=== PATIENT | female | born 1965 | race Caucasian/White ===

== ENCOUNTER 2020-06-14 22:09 | Inpatient (IN) ==
[2020-06-14] MEDS ORDERED: Ondansetron 4 MG/2 ML VIAL IVP ONE (22:43)
[2020-06-14] MEDS ORDERED: Isovue-370 500 ML BOTTLE IVP ONE (22:43)
[2020-06-14] MEDS ORDERED: *HR* FentaNYL (PF) 100 MCG/2 ML VIAL IVP ONE (22:43)
[2020-06-14 23:13] LABS: Basophils % 0.3 %; Eosinophils # 0.2 K/mcL (0.0-0.6); Eosinophils % 1.5 %; Hematocrit 40.1 % (35.3-44.9); Immature Granulocytes % 0.2 % (0-4); Lymphocytes # 2.1 K/mcL (0.6-4.6); Lymphocytes % 16.3 %; Mean Corpuscular HGB Conc 32.4 g/dL (31.6-35.5); Mean Corpuscular Hemoglobin 28.7 pg (28.0-33.3); Mean Corpuscular Volume 88.5 fL (83.0-100.0); Mean Platelet Volume 9.2 fL (9.4-12.4); Monocytes # 0.7 K/mcL (0.0-1.3); Monocytes % 5.6 %; Neutrophils # 9.9 K/mcL (1.6-8.9); Platelet Count 411 K/mcL (140-400); Red Blood Count 4.53 M/mcL (3.82-4.97); Red Cell Distribution Width 12.6 % (11.5-14.5); Segmented Neutrophils % 76.1 %
[2020-06-14 23:29] LABS: Bilirubin,Urine Negative (Negative); Blood,Urine Negative (Negative); Clarity,Urine Clear (Clear); Color,Urine Yellow (Yellow); Glucose,Urine (UA) Normal (Normal); Ketones,Urine Negative (Negative); Leukocyte Esterase,Urine Negative (Negative); Mucus,Urine Few per lpf (None-Few); Nitrite,Urine Negative (Negative); Protein,Urine 30 mg/dL (Neg-Trace); RBC,Urine 0-3 per hpf (0-3); Specific Gravity,Urine > 1.030 (1.010-1.025); Squamous Epithelial Cell,Urine Few per hpf (None-Few); WBC,Urine 0-3 per hpf (0-3)
[2020-06-14] MEDS ORDERED: Morphine Sulfate 2 MG/ML SYRINGE IVP ONE (23:31)
[2020-06-14 23:36] LABS: Alanine Aminotransferase 37 Units/L (7-52); Albumin 4.2 g/dL (3.5-5.7); Albumin/Globulin Ratio 1.2 (1.1-2.2); Alkaline Phosphatase 98 Units/L (34-104); Aspartate Amino Transferase 22 Units/L (13-39); BUN/Creatinine Ratio 17 (6-26); Bilirubin,Direct 0.1 mg/dL (0.0-0.2); Bilirubin,Indirect 0.2 mg/dL (0.0-1.0); Bilirubin,Total 0.3 mg/dL (0.3-1.0); Blood Urea Nitrogen 12 mg/dL (6-20); Calcium 9.3 mg/dL (8.6-10.3); Carbon Dioxide 26 mEq/L (23-29); Chloride 100 mEq/L (98-107); Globulin 3.4 g/dL (2.4-3.5); Glucose 103 mg/dL (70-105); Lipase 61 Units/L (11-82); Osmolality,Calculated 280 (280-300); Potassium 3.8 mEq/L (3.5-5.1); Sodium 135 mEq/L (136-145); Total Protein 7.6 g/dL (6.4-8.9); eGFR For African Americans > 60 (> 60); eGFR For Non-African Americans > 60 (> 60)
[2020-06-14] MEDS ORDERED: GI Cocktail 40 ML EACH PO ONE (23:59)
[2020-06-15] MEDS ORDERED: Tetracaine/Benzocaine/Butamben 1 SPRAY AEROSOL MM ONE (01:10)
[2020-06-15] MEDS ORDERED: Tetracaine/Benzocaine/Butamben 1 SPRAY AEROSOL ONE (01:12)
[2020-06-15] MEDS ORDERED: Ondansetron 4 MG/2 ML VIAL IVP PRN (02:37)
[2020-06-15] MEDS ORDERED: Naloxone 0.4 MG/ML INJ IVP PRN (02:37)
[2020-06-15] MEDS: Acetaminophen 325 MG TABLET PO PRN ×3 (03:10→18:39)
[2020-06-15] MEDS: Ringers Solution, Lactated 1,000 ML IVC SCH ×3 (03:11→22:13)
[2020-06-15] MEDS ORDERED: Pantoprazole 40 MG VIAL IVP ONE ×2 (03:27→04:15)
[2020-06-15] MEDS ORDERED: Acetaminophen IV 1,000 MG/100 ML BAG IVPB ONE ×2 (03:29→21:10)
[2020-06-15] MEDS ORDERED: Pantoprazole 40 MG in 0.9 % Sodium Chloride Mini Bag 100 ML IVC SCH (03:45)
[2020-06-15 04:27] LABS: Basophils % 0.2 %; Eosinophils # 0.1 K/mcL (0.0-0.6); Eosinophils % 1.3 %; Hemoglobin 12.8 g/dL (11.5-15.4); Immature Granulocytes % 0.1 % (0-4); Lymphocytes # 1.7 K/mcL (0.6-4.6); Lymphocytes % 18.6 %; Mean Corpuscular Hemoglobin 28.8 pg (28.0-33.3); Mean Corpuscular Volume 90.1 fL (83.0-100.0); Mean Platelet Volume 9.4 fL (9.4-12.4); Monocytes # 0.4 K/mcL (0.0-1.3); Monocytes % 4.5 %; Neutrophils # 6.8 K/mcL (1.6-8.9); Platelet Count 396 K/mcL (140-400); Red Blood Count 4.44 M/mcL (3.82-4.97); Red Cell Distribution Width 12.6 % (11.5-14.5); Segmented Neutrophils % 75.3 %; White Blood Count 9.1 K/mcL (4.3-11.1)
[2020-06-15 04:43] LABS: BUN/Creatinine Ratio 14 (6-26); Blood Urea Nitrogen 11 mg/dL (6-20); Calcium 9.3 mg/dL (8.6-10.3); Carbon Dioxide 28 mEq/L (23-29); Chloride 101 mEq/L (98-107); Glucose 100 mg/dL (70-105); Magnesium 2.1 mg/dL (1.6-2.6); Osmolality,Calculated 281 (280-300); Potassium 4.2 mEq/L (3.5-5.1); Sodium 136 mEq/L (136-145); eGFR For African Americans > 60 (> 60); eGFR For Non-African Americans > 60 (> 60)
[2020-06-15] MEDS: Nicotine 21 MG PATCH.TD24 TD SCH (07:48)
[2020-06-15] MEDS ORDERED: D5% in Water 1,000 ML IVC PRN (13:46)
[2020-06-15] MEDS ORDERED: *HR* Dextrose 50 % in Water (Vial) 50 ML VIAL IVP PRN (13:46)
[2020-06-15] MEDS ORDERED: Dextrose Gel 15 GM/37.5 ML TUBE PO PRN ×2 (13:46)
[2020-06-16 01:34] LABS: Hematocrit 37.6 % (35.3-44.9); Hemoglobin 11.7 g/dL (11.5-15.4); Mean Corpuscular HGB Conc 31.1 g/dL (31.6-35.5); Mean Corpuscular Hemoglobin 27.6 pg (28.0-33.3); Mean Corpuscular Volume 88.7 fL (83.0-100.0); Mean Platelet Volume 9.4 fL (9.4-12.4); Platelet Count 360 K/mcL (140-400); Red Blood Count 4.24 M/mcL (3.82-4.97); Red Cell Distribution Width 12.7 % (11.5-14.5); White Blood Count 7.8 K/mcL (4.3-11.1)
[2020-06-16 01:58] LABS: BUN/Creatinine Ratio 29 (6-26); Blood Urea Nitrogen 18 mg/dL (6-20); Calcium 8.7 mg/dL (8.6-10.3); Carbon Dioxide 26 mEq/L (23-29); Chloride 103 mEq/L (98-107); Glucose 79 mg/dL (70-105); Osmolality,Calculated 285 (280-300); Phosphorous 3.3 mg/dL (2.7-4.5); Potassium 3.9 mEq/L (3.5-5.1); Sodium 137 mEq/L (136-145); eGFR For African Americans > 60 (> 60); eGFR For Non-African Americans > 60 (> 60)
[2020-06-16] MEDS ORDERED: Acetaminophen IV 1,000 MG/100 ML BAG IVPB SCH (06:00)
[2020-06-16] MEDS: Nicotine 21 MG PATCH.TD24 TD SCH (08:06)
[2020-06-16] MEDS: Ringers Solution, Lactated 1,000 ML IVC SCH ×2 (12:32→20:36)
[2020-06-16] MEDS: Acetaminophen 325 MG TABLET PO PRN (14:20)
[2020-06-16 16:40] LABS: Adenovirus Not Detected (Not Detect); Bordetella Pertussis Not Detected (Not Detect); Chlamydophila pneumoniae Not Detected (Not Detect); Coronavirus 229E Not Detected (Not Detect); Coronavirus HKU1 Not Detected (Not Detect); Coronavirus NL63 Not Detected (Not Detect); Coronavirus OC43 Not Detected (Not Detect); Human Metapneumovirus Not Detected (Not Detect); Human Rhinovirus/Enterovirus Not Detected (Not Detect); Influenza A Subtype 2009 H1 Not Detected (Not Detect); Influenza B Not Detected (Not Detect); Mycoplasma pneumoniae Not Detected (Not Detect); Parainfluenza Virus 1 Not Detected (Not Detect); Parainfluenza Virus 2 Not Detected (Not Detect); Parainfluenza Virus 3 Not Detected (Not Detect); Parainfluenza Virus 4 Not Detected (Not Detect); Respiratory Syncytial Virus Not Detected (Not Detect); SARS-CoV-2 Not Detected (Not Detect)
[2020-06-16] MEDS: tiZANidine 4 MG TABLET PO PRN (20:32)
[2020-06-16] MEDS ORDERED: ARIPiprazole 2 MG TABLET PO SCH (21:00)
[2020-06-16] MEDS ORDERED: traZODone 50 MG TABLET PO SCH (21:00)
[2020-06-17 05:19] LABS: Hematocrit 35.1 % (35.3-44.9); Mean Corpuscular HGB Conc 31.3 g/dL (31.6-35.5); Mean Corpuscular Hemoglobin 27.6 pg (28.0-33.3); Mean Corpuscular Volume 88.2 fL (83.0-100.0); Mean Platelet Volume 9.5 fL (9.4-12.4); Platelet Count 314 K/mcL (140-400); Red Blood Count 3.98 M/mcL (3.82-4.97); Red Cell Distribution Width 12.3 % (11.5-14.5); White Blood Count 6.2 K/mcL (4.3-11.1)
[2020-06-17 05:40] LABS: BUN/Creatinine Ratio 20 (6-26); Blood Urea Nitrogen 12 mg/dL (6-20); Calcium 8.8 mg/dL (8.6-10.3); Carbon Dioxide 23 mEq/L (23-29); Chloride 104 mEq/L (98-107); Glucose 104 mg/dL (70-105); Magnesium 1.8 mg/dL (1.6-2.6); Osmolality,Calculated 282 (280-300); Phosphorous 3.1 mg/dL (2.7-4.5); Potassium 3.7 mEq/L (3.5-5.1); Sodium 136 mEq/L (136-145); eGFR For African Americans > 60 (> 60); eGFR For Non-African Americans > 60 (> 60)
[2020-06-17] MEDS: Ringers Solution, Lactated 1,000 ML IVC SCH (06:49)
[2020-06-17 07:06] VITALS: BP 125/82
[2020-06-17] MEDS: Nicotine 21 MG PATCH.TD24 TD SCH (08:02)
[2020-06-17] MEDS: tiZANidine 4 MG TABLET PO PRN (08:04)
[2020-06-17] MEDS ORDERED: PARoxetine 30 MG TABLET PO SCH (09:00)
== END 2020-06-17 09:30 | disposition home or self-care (01) | DRG 247 ==
LOC: 2ANU 22:09 → EMEROOARM 22:09 → SUATTDRO 06-15 01:26 → 2ANU 06-15 02:05
PROVIDERS: ADMIT Pharmacist; ATTEND Internal Medicine

== ENCOUNTER 2021-12-04 21:52 | Inpatient (IN) ==
[2021-12-04] MEDS ORDERED: 0.9 % Sodium Chloride 1,000 ML IVC ONE (22:39)
[2021-12-04] MEDS ORDERED: *HR* HYDROmorphone (PF) 1 MG/ML SYRINGE IVP ONE (22:39)
[2021-12-04] MEDS ORDERED: Isovue-370 500 ML BOTTLE IVP ONE (22:40)
[2021-12-04 22:54] LABS: Eosinophils % 0.1 %; Hematocrit 33.8 % (35.3-44.9); Hemoglobin 10.9 g/dL (11.5-15.4); Immature Granulocytes % 0.3 % (0-4); Lymphocytes # 1.7 K/mcL (0.6-4.6); Mean Corpuscular HGB Conc 32.2 g/dL (31.6-35.5); Mean Corpuscular Hemoglobin 28.2 pg (28.0-33.3); Mean Corpuscular Volume 87.6 fL (83.0-100.0); Mean Platelet Volume 10.2 fL (9.4-12.4); Monocytes # 0.5 K/mcL (0.0-1.3); Monocytes % 6.1 %; Neutrophils # 5.5 K/mcL (1.6-8.9); Platelet Count 419 K/mcL (140-400); Red Blood Count 3.86 M/mcL (3.82-4.97); Red Cell Distribution Width 13.1 % (11.5-14.5); Segmented Neutrophils % 71.5 %; White Blood Count 7.7 K/mcL (4.3-11.1)
[2021-12-04 23:12] LABS: Alanine Aminotransferase 13 Units/L (7-52); Albumin 3.9 g/dL (3.5-5.7); Alkaline Phosphatase 84 Units/L (34-104); Aspartate Amino Transferase 13 Units/L (13-39); BUN/Creatinine Ratio 31 (6-26); Bilirubin,Indirect 0.3 mg/dL (0.0-1.0); Bilirubin,Total 0.3 mg/dL (0.3-1.0); Blood Urea Nitrogen 22 mg/dL (6-20); Calcium 9.4 mg/dL (8.6-10.3); Carbon Dioxide 26 mEq/L (23-29); Chloride 103 mEq/L (98-107); Globulin 3.8 g/dL (2.4-3.5); Glucose 92 mg/dL (70-105); Lipase 20 Units/L (11-82); Osmolality,Calculated 285 (280-300); Potassium 4.4 mEq/L (3.5-5.1); Sodium 136 mEq/L (136-145); Total Protein 7.7 g/dL (6.4-8.9); eGFR For African Americans > 60 (> 60); eGFR For Non-African Americans > 60 (> 60)
[2021-12-05] MEDS ORDERED: *HR* HYDROmorphone (PF) 1 MG/ML SYRINGE IVP ONE ×2 (01:25→21:55)
[2021-12-05] MEDS ORDERED: Isovue-370 500 ML BOTTLE IVP ONE (05:27)
[2021-12-05] MEDS ORDERED: Naloxone 0.4 MG/ML INJ IVP PRN (05:35)
[2021-12-05] MEDS: 0.9 % Sodium Chloride 1,000 ML IVC SCH ×2 (06:46→18:50)
[2021-12-05] MEDS: Acetaminophen IV 1,000 MG/100 ML BAG IVPB SCH ×4 (06:47→23:56)
[2021-12-05] MEDS: Azithromycin 500 MG in 0.9 % Sodium Chloride 250 ML IVPB SCH (06:47)
[2021-12-05 08:56] LABS: Hematocrit 32.5 % (35.3-44.9); Hemoglobin 10.2 g/dL (11.5-15.4); Mean Corpuscular HGB Conc 31.4 g/dL (31.6-35.5); Mean Corpuscular Hemoglobin 27.7 pg (28.0-33.3); Mean Corpuscular Volume 88.3 fL (83.0-100.0); Mean Platelet Volume 10.1 fL (9.4-12.4); Platelet Count 392 K/mcL (140-400); Red Blood Count 3.68 M/mcL (3.82-4.97); Red Cell Distribution Width 13.2 % (11.5-14.5)
[2021-12-05 09:11] LABS: Chol/HDL Ratio 4.3 (0-4.9); Magnesium 1.8 mg/dL (1.6-2.6)
[2021-12-05 09:12] LABS: % Iron Saturation 10 % (15-50); BUN/Creatinine Ratio 31 (6-26); Blood Urea Nitrogen 20 mg/dL (6-20); Calcium 8.8 mg/dL (8.6-10.3); Carbon Dioxide 25 mEq/L (23-29); Chloride 106 mEq/L (98-107); Glucose 84 mg/dL (70-105); Iron 38 mcg/dL (50-170); Osmolality,Calculated 288 (280-300); Potassium 3.5 mEq/L (3.5-5.1); Sodium 138 mEq/L (136-145); Transferrin 265 mg/dL (203-362); eGFR For African Americans > 60 (> 60); eGFR For Non-African Americans > 60 (> 60)
[2021-12-05 09:36] LABS: Folate 9.8 ng/mL (3.0-16.0)
[2021-12-05] MEDS: cefTRIAXone 1,000 MG in 0.9 % Sodium Chloride Mini Bag 100 ML IVPB SCH (09:43)
[2021-12-05] MEDS ORDERED: Lidocaine Jelly 11 ml Syringe MM ONE ×2 (09:49→09:57)
[2021-12-05 09:52] LABS: Hepatitis B Surface Antigen Nonreactive (Nonreactive)
[2021-12-05 09:53] LABS: Ferritin 32 ng/mL (10-120)
[2021-12-05] MEDS ORDERED: Tetracaine/Benzocaine/Butamben 1 SPRAY AEROSOL MM ONE (09:57)
[2021-12-05 10:21] LABS: Hepatitis B Core IgM Nonreactive (Nonreactive)
[2021-12-05 10:23] LABS: Hepatitis A Antibody IgM Nonreactive (Nonreactive)
[2021-12-05] MEDS: Ondansetron 4 MG/2 ML VIAL IVP PRN (11:44)
[2021-12-05 12:42] LABS: Hepatitis C Virus Antibody Reactive (Nonreactive)
[2021-12-05] MEDS: QUEtiapine Fumarate 100 MG TABLET PO SCH (20:25)
[2021-12-06 02:03] LABS: Hematocrit 34.5 % (35.3-44.9); Hemoglobin 10.8 g/dL (11.5-15.4); Mean Corpuscular HGB Conc 31.3 g/dL (31.6-35.5); Mean Corpuscular Hemoglobin 27.9 pg (28.0-33.3); Mean Corpuscular Volume 89.1 fL (83.0-100.0); Mean Platelet Volume 9.9 fL (9.4-12.4); Platelet Count 422 K/mcL (140-400); Red Blood Count 3.87 M/mcL (3.82-4.97); Red Cell Distribution Width 13.2 % (11.5-14.5); White Blood Count 6.6 K/mcL (4.3-11.1)
[2021-12-06 02:16] LABS: BUN/Creatinine Ratio 25 (6-26); Blood Urea Nitrogen 13 mg/dL (6-20); Calcium 8.7 mg/dL (8.6-10.3); Carbon Dioxide 23 mEq/L (23-29); Chloride 105 mEq/L (98-107); Glucose 68 mg/dL (70-105); Osmolality,Calculated 280 (280-300); Potassium 3.6 mEq/L (3.5-5.1); Sodium 136 mEq/L (136-145); eGFR For African Americans > 60 (> 60); eGFR For Non-African Americans > 60 (> 60)
[2021-12-06 02:21] LABS: INR 0.9; Prothrombin Time 10.4 Seconds (9.4-12.1)
[2021-12-06] MEDS: 0.9 % Sodium Chloride 1,000 ML IVC SCH ×2 (03:07→22:44)
[2021-12-06] MEDS: Acetaminophen IV 1,000 MG/100 ML BAG IVPB SCH ×3 (06:44→17:32)
[2021-12-06] MEDS: Azithromycin 500 MG in 0.9 % Sodium Chloride 250 ML IVPB SCH (06:45)
[2021-12-06] MEDS: cefTRIAXone 1,000 MG in 0.9 % Sodium Chloride Mini Bag 100 ML IVPB SCH (08:08)
[2021-12-06] MEDS: Ondansetron 4 MG/2 ML VIAL IVP PRN ×2 (08:08→19:34)
[2021-12-06] MEDS ORDERED: *HR* Dextrose 50 % in Water (Syg) 50 ML SYRINGE IVP PRN (08:09)
[2021-12-06] MEDS ORDERED: D5% in Water 1,000 ML IVC PRN (08:09)
[2021-12-06] MEDS ORDERED: Dextrose Gel 15 GM/37.5 ML TUBE PO PRN ×2 (08:09)
[2021-12-06] MEDS: *HR* Promethazine 25 MG/ML VIAL IM PRN (13:41)
[2021-12-06] MEDS: QUEtiapine Fumarate 100 MG TABLET PO SCH (19:34)
[2021-12-07] MEDS: Acetaminophen IV 1,000 MG/100 ML BAG IVPB SCH ×5 (00:58→23:50)
[2021-12-07] MEDS: *HR* Promethazine 25 MG/ML VIAL IM PRN (00:59)
[2021-12-07 02:40] LABS: Basophils % 0.2 %; Eosinophils # 0.1 K/mcL (0.0-0.6); Eosinophils % 0.9 %; Hematocrit 32.7 % (35.3-44.9); Hemoglobin 10.5 g/dL (11.5-15.4); Immature Granulocytes % 0.2 % (0-4); Lymphocytes # 1.4 K/mcL (0.6-4.6); Lymphocytes % 24.4 %; Mean Corpuscular HGB Conc 32.1 g/dL (31.6-35.5); Mean Corpuscular Hemoglobin 27.7 pg (28.0-33.3); Mean Corpuscular Volume 86.3 fL (83.0-100.0); Mean Platelet Volume 9.7 fL (9.4-12.4); Monocytes # 0.5 K/mcL (0.0-1.3); Monocytes % 8.1 %; Neutrophils # 3.7 K/mcL (1.6-8.9); Platelet Count 452 K/mcL (140-400); Red Blood Count 3.79 M/mcL (3.82-4.97); Red Cell Distribution Width 12.7 % (11.5-14.5); Segmented Neutrophils % 66.2 %; White Blood Count 5.5 K/mcL (4.3-11.1)
[2021-12-07 02:41] LABS: Hematocrit 32.3 % (35.3-44.9); Hemoglobin 10.5 g/dL (11.5-15.4); Mean Corpuscular HGB Conc 32.5 g/dL (31.6-35.5); Mean Corpuscular Hemoglobin 28.2 pg (28.0-33.3); Mean Corpuscular Volume 86.8 fL (83.0-100.0); Mean Platelet Volume 9.7 fL (9.4-12.4); Platelet Count 435 K/mcL (140-400); Red Blood Count 3.72 M/mcL (3.82-4.97); Red Cell Distribution Width 12.7 % (11.5-14.5); White Blood Count 5.6 K/mcL (4.3-11.1)
[2021-12-07 02:50] LABS: Phosphorous 3.2 mg/dL (2.7-4.5)
[2021-12-07 02:51] LABS: BUN/Creatinine Ratio 22 (6-26); Blood Urea Nitrogen 12 mg/dL (6-20); Calcium 8.7 mg/dL (8.6-10.3); Carbon Dioxide 26 mEq/L (23-29); Chloride 103 mEq/L (98-107); Glucose 75 mg/dL (70-105); Osmolality,Calculated 282 (280-300); Potassium 3.3 mEq/L (3.5-5.1); Sodium 137 mEq/L (136-145); eGFR For African Americans > 60 (> 60); eGFR For Non-African Americans > 60 (> 60)
[2021-12-07] MEDS: Azithromycin 500 MG in 0.9 % Sodium Chloride 250 ML IVPB SCH (06:40)
[2021-12-07] MEDS: Ondansetron 4 MG/2 ML VIAL IVP PRN (06:40)
[2021-12-07] MEDS: cefTRIAXone 1,000 MG in 0.9 % Sodium Chloride Mini Bag 100 ML IVPB SCH (09:45)
[2021-12-07] MEDS ORDERED: *HR* Enoxaparin 40 MG/0.4 ML SYRINGE SQ ONE (13:01)
[2021-12-07] MEDS: Gabapentin 400 MG CAPSULE PO SCH ×2 (15:49→20:32)
[2021-12-07] MEDS: PARoxetine 10 MG TABLET PO SCH (17:51)
[2021-12-07] MEDS: QUEtiapine Fumarate 100 MG TABLET PO SCH (20:32)
[2021-12-07] MEDS ORDERED: traZODone 50 MG TABLET PO SCH (21:00)
[2021-12-08 02:35] LABS: BUN/Creatinine Ratio 14 (6-26); Blood Urea Nitrogen 9 mg/dL (6-20); Calcium 8.8 mg/dL (8.6-10.3); Carbon Dioxide 24 mEq/L (23-29); Chloride 104 mEq/L (98-107); Glucose 77 mg/dL (70-105); Osmolality,Calculated 281 (280-300); Potassium 3.4 mEq/L (3.5-5.1); Sodium 137 mEq/L (136-145); eGFR For African Americans > 60 (> 60); eGFR For Non-African Americans > 60 (> 60)
[2021-12-08] MEDS: 0.9 % Sodium Chloride 1,000 ML IVC SCH (03:33)
[2021-12-08] MEDS ORDERED: *HR* Enoxaparin 40 MG/0.4 ML SYRINGE SQ SCH (06:00)
[2021-12-08] MEDS: Acetaminophen IV 1,000 MG/100 ML BAG IVPB SCH (06:43)
[2021-12-08 08:10] VITALS: BP 144/81; PULSE 74; TEMP 97.5; O2SAT 97
[2021-12-08] MEDS: Gabapentin 400 MG CAPSULE PO SCH (08:20)
[2021-12-08] MEDS: PARoxetine 10 MG TABLET PO SCH (08:20)
[2021-12-08] MEDS ORDERED: levoFLOXacin 750 MG TABLET PO SCH (09:00)
[2021-12-08] MEDS ORDERED: Azithromycin 250 MG TABLET PO SCH (09:00)
[2021-12-08 11:51] LABS: Magnesium 1.8 mg/dL (1.6-2.6); Phosphorous 3.7 mg/dL (2.7-4.5)
== END 2021-12-08 10:16 | disposition home or self-care (01) | DRG 247 ==
LOC: 3ANU 21:52 → EMEROOARM 21:52 → SUATTDRO 12-05 03:12 → 3ANU 12-05 03:52 → SUATTDRO 12-06 14:11
PROVIDERS: ADMIT Internal Medicine; ATTEND Internal Medicine

== ENCOUNTER 2022-03-26 10:39 | Inpatient (IN) ==
[2022-03-26] MEDS ORDERED: 0.9 % Sodium Chloride 1,000 ML IVC ONE (11:32)
[2022-03-26] MEDS ORDERED: Morphine Sulfate 2 MG/ML SYRINGE IVP ONE ×2 (11:32→14:06)
[2022-03-26] MEDS ORDERED: Ondansetron 4 MG/2 ML VIAL IVP ONE (11:32)
[2022-03-26] MEDS ORDERED: Iopamidol - 370 500 ML MLS IVP ONE (11:34)
[2022-03-26 11:58] LABS: Basophils % 0.3 %; Eosinophils # 0.2 K/mcL (0.0-0.6); Eosinophils % 1.5 %; Hematocrit 37.3 % (35.3-44.9); Hemoglobin 11.7 g/dL (11.5-15.4); Immature Granulocytes % 0.2 % (0-4); Lymphocytes # 1.2 K/mcL (0.6-4.6); Lymphocytes % 11.2 %; Mean Corpuscular HGB Conc 31.4 g/dL (31.6-35.5); Mean Corpuscular Hemoglobin 26.6 pg (28.0-33.3); Mean Corpuscular Volume 84.8 fL (83.0-100.0); Mean Platelet Volume 10.7 fL (9.4-12.4); Monocytes # 0.5 K/mcL (0.0-1.3); Monocytes % 5.1 %; Neutrophils # 8.6 K/mcL (1.6-8.9); Platelet Count 396 K/mcL (140-400); Red Cell Distribution Width 13.5 % (11.5-14.5); Segmented Neutrophils % 81.7 %; White Blood Count 10.5 K/mcL (4.3-11.1)
[2022-03-26 12:07] LABS: Prothrombin Time 11.1 Seconds (9.4-12.1)
[2022-03-26 12:20] LABS: Alanine Aminotransferase 36 Units/L (7-52); Albumin 4.1 g/dL (3.5-5.7); Albumin/Globulin Ratio 1.2 (1.1-2.2); Alkaline Phosphatase 101 Units/L (34-104); Amylase 33 Units/L (29-103); Aspartate Amino Transferase 24 Units/L (13-39); BUN/Creatinine Ratio 20 (6-26); Bilirubin,Direct 0.1 mg/dL (0.0-0.2); Bilirubin,Indirect 0.3 mg/dL (0.0-1.0); Bilirubin,Total 0.4 mg/dL (0.3-1.0); Blood Urea Nitrogen 14 mg/dL (6-20); Calcium 9.8 mg/dL (8.6-10.3); Carbon Dioxide 25 mEq/L (23-29); Chloride 104 mEq/L (98-107); Globulin 3.5 g/dL (2.4-3.5); Glucose 115 mg/dL (70-105); Lipase 42 Units/L (11-82); Osmolality,Calculated 287 (280-300); Sodium 138 mEq/L (136-145); Total Protein 7.6 g/dL (6.4-8.9); Troponin I < 0.03 ng/mL (< 0.04)
[2022-03-26 12:32] LABS: Bilirubin,Urine Negative (Negative); Blood,Urine Negative (Negative); Clarity,Urine Clear (Clear); Color,Urine Light-Yellow (Yellow); Glucose,Urine (UA) Normal (Normal); Ketones,Urine Negative (Negative); Leukocyte Esterase,Urine Negative (Negative); Nitrite,Urine Negative (Negative); Protein,Urine Trace mg/dL (Neg-Trace); Specific Gravity,Urine > 1.030 (1.010-1.025); Urobilinogen,Urine Normal (Normal)
[2022-03-26 12:43] LABS: Amphetamine Screen,Urine Positive ng/mL (Cutoff=1000); Barbiturate Screen,Urine Negative ng/mL (Cutoff=200); Cannabinoid Screen,Urine Negative ng/mL (Cutoff = 50); Cocaine Screen,Urine Negative ng/mL (Cutoff= 300); Opiate Screen,Urine Positive ng/mL (Cutoff=300); Phencyclidine Screen,Urine Negative ng/mL (Cutoff=25)
[2022-03-26] MEDS ORDERED: Naloxone 0.4 MG/ML INJ IVP PRN (14:15)
[2022-03-26] MEDS ORDERED: Metoclopramide 10 MG/2 ML VIAL IVP ONE (14:35)
[2022-03-26] MEDS ORDERED: Metoclopramide 10 MG/2 ML VIAL IVP PRN (15:14)
[2022-03-26] MEDS: 0.9 % Sodium Chloride 1,000 ML IVC SCH (16:51)
[2022-03-26] MEDS ORDERED: Acetaminophen IV 1,000 MG/100 ML BAG IVPB ONE (19:07)
[2022-03-27 03:22] LABS: BUN/Creatinine Ratio 21 (6-26); Blood Urea Nitrogen 14 mg/dL (6-20); Calcium 8.3 mg/dL (8.6-10.3); Carbon Dioxide 27 mEq/L (23-29); Chloride 108 mEq/L (98-107); Glucose 90 mg/dL (70-105); Osmolality,Calculated 290 (280-300); Potassium 3.9 mEq/L (3.5-5.1); Sodium 140 mEq/L (136-145)
[2022-03-27] MEDS ORDERED: Chloraseptic Spray 177 ML BOTTLE MM PRN (05:16)
[2022-03-27] MEDS: 0.9 % Sodium Chloride 1,000 ML IVC SCH ×2 (05:58→20:30)
[2022-03-27] MEDS: Nicotine 14 MG PATCH.TD24 TD SCH (09:35)
[2022-03-27] MEDS: Acetaminophen 325 MG TABLET PO PRN ×2 (12:48→20:38)
[2022-03-27] MEDS ORDERED: tiZANidine 4 MG TABLET PO PRN (18:04)
[2022-03-27] MEDS: Gabapentin 400 MG CAPSULE PO SCH (20:29)
[2022-03-27] MEDS ORDERED: QUEtiapine Fumarate 100 MG TABLET PO SCH (21:00)
[2022-03-27] MEDS ORDERED: traZODone 50 MG TABLET PO SCH (21:00)
[2022-03-28] MEDS ORDERED: PARoxetine 10 MG TABLET PO SCH (09:00)
[2022-03-28] MEDS: Gabapentin 400 MG CAPSULE PO SCH (09:46)
[2022-03-28] MEDS: Nicotine 14 MG PATCH.TD24 TD SCH (09:46)
[2022-03-28 14:59] LABS: Benzodiazepines Screen,Urine Negative ng/mL (Cutoff=200)
[2022-03-28 15:18] VITALS: BP 125/68; PULSE 61; TEMP 98; O2SAT 94
== END 2022-03-28 16:28 | disposition home or self-care (01) | DRG 247 ==
LOC: EMEROOARM 10:39 → 3ANU 10:39 → SUATTDRO 03-27 17:57
PROVIDERS: ADMIT General Practice; ATTEND Internal Medicine